=== PATIENT | male | born 2005 | race Caucasian/White ===

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

== ENCOUNTER 2024-01-30 22:57 | Emergency (ER) | payer BC, SELFPAY ==
[2024-01-30 23:03] VITALS: BP 121/73; PULSE 81; RESP 20; TEMP 36.9; O2SAT 99; BMI 18.7
--- NOTE | 2024-01-30 23:30 | ED.GENADULT ---
HPI - General Adult General Chief complaint: Unspecified Complaint, Adult Stated complaint: lightheaded Time Seen by Provider: 01/30/24 23:30 History of Present Illness HPI narrative: CC: Intermittent Lightheadedness pt. was down in [place] for vacation. started having lightheadedness at airport. was seen by MD. diagnosed with anxiety. labs/ekg were negative at that time. denies n/v, diarrhea, fevers. 18-year-old young man presenting to the emergency department with concern of rather significant lightheadedness to the point of syncope. Is not known to have a seizure disorder. Apparently was evaluated recently with extensive workup and thought to have this be related to anxiety. Apparently normal chemistries. EKG as well. Occurring again today. No chest pain or shortness of breath. No seizure-like activity. No history of dysrhythmia or sudden cardiac in the family. Is not complaining of headache. Was dispensed hydroxyzine but is excessively tired with that and so prefers not to take it. No other substances. Related Data Previous Rx's ?Medication ?Instructions ?Recorded propranolol 20 mg tablet 20 mg PO BID-TID PRN For 01/31/24 palpitations, anxiety #30 tabs Allergies Allergy/AdvReac Type Severity Reaction Status Date / Time No Known Drug Allergies Allergy Verified 01/30/24 23:05 Review of Systems Status of ROS: Reports: 6 or more systems reviewed and unremarkable except as noted in History and below [facility] Medical History No significant past medical history Surgical History No significant past surgical history Social History Smoking Status: Never smoker Do you use any of these nicotine containing products: None Second hand tobacco smoke exposure: No How often do you have a drink containing alcohol: never How often do you have six or more drinks on one occasion: Never AUDIT-C Alcohol total score: 0 Non-prescribed substance use: denies use service: No Exam Narrative: Exam Narrative: Pleasant. NAD. Appears just generally sleepy. Cranial nerves 2-12 are intact. Pupils are equal and briskly reactive. Moving all extremities without difficulty. Is well-perfused. Heart with regular rate and rhythm without murmur rub or gallop. Normal PMI. Lungs are clear. Extremities are without edema. Abdomen is soft flat nontender. Skin is warm and dry without any indication of injury. Head is atraumatic. Neck is supple nontender. Const: Vital Signs, click to edit/add: Vital Signs - 24 hr 01/30/24 23:03 01/30/24 23:53 01/31/24 01:14 Temperature 98.5 F 98.5 F Pulse Rate [Right Pulse Oximeter] 81 67 Pulse Rate [orthos tatic lying Left P ulse Oximeter] 60 Pulse Rate [orthos tatic sitting Left Pulse Oximeter] 63 Pulse Rate [orthos tatic standing Lef t Pulse Oximeter] 65 Respiratory Rate 20 20 Blood Pressure [Ri ght Upper Arm] 121/73 118/71 Blood Pressure [or thostatic lying Ri ght Arm] 124/67 Blood Pressure [or thostatic sitting Right Arm] 123/74 Blood Pressure [or thostatic standing Right Arm] 114/76 Pulse Oximetry 99 99 Oxygen Delivery Me thod Room Air Room Air 01/31/24 02:04 Temperature 98.5 F Pulse Rate [Right Pulse Oximeter] 67 Pulse Rate [orthos tatic lying Left P ulse Oximeter] Pulse Rate [orthos tatic sitting Left Pulse Oximeter] Pulse Rate [orthos tatic standing Lef t Pulse Oximeter] Respiratory Rate 20 Blood Pressure [Ri ght Upper Arm] 118/71 Blood Pressure [or thostatic lying Ri ght Arm] Blood Pressure [or thostatic sitting Right Arm] Blood Pressure [or thostatic standing Right Arm] Pulse Oximetry Oxygen Delivery Me thod Documenting provider has reviewed patient's vital signs: yes Course Vital Signs Vital signs: Initial Vital Signs Temperature 98.5 F 01/30/24 23:03 Temperature Source Temporal Artery Scan 01/30/24 23:03 Pulse Rate 81 01/30/24 23:03 Respiratory Rate 20 01/30/24 23:03 Blood Pressure 121/73 01/30/24 23:03 Blood Pressure Mean 89 01/30/24 23:03 Blood Pressure Position Sitting 01/30/24 23:03 Pulse Oximetry 99 01/30/24 23:03 Oxygen Delivery Method Room Air 01/30/24 23:03 Vital Signs Temperature 98.5 F 01/30/24 23:03 Pulse Rate 81 01/30/24 23:03 Respiratory Rate 20 01/30/24 23:03 Blood Pressure 121/73 01/30/24 23:03 Pulse Oximetry 99 01/30/24 23:03 Oxygen Delivery Method Room Air 01/30/24 23:03 Temperature 98.5 F 01/31/24 02:04 Pulse Rate 67 01/31/24 02:04 Respiratory Rate 20 01/31/24 02:04 Blood Pressure 118/71 01/31/24 02:04 Pulse Oximetry 99 01/31/24 01:14 Oxygen Delivery Method Room Air 01/31/24 01:14 Medications Administered Medications: Discontinued Medications Generic Name Dose Route Start Last Admin Trade Name Freq PRN Reason Stop Dose Admin Propranolol HCl 20 mg 01/31/24 01:55 01/31/24 02:04 Propranolol 20 Mg Tablet PO 01/31/24 01:56 20 mg ONCE ONE Administration Medical Decision Making MDM Narrative Medical decision making narrative: Monitor for arrhythmia here in the emergency department as well as further evolution of symptoms. Unclear etiology at this point. Somewhat orthostatic in nature and not clearly tachycardic like pots. Otherwise generally healthy. Reviewing recent records. Doubtful that has had any change in chemistries or hemoglobin which were recently normal. This does not appear to be an ischemic cardiovascular event. Accompanied here by girlfriend. 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 Reviewing records as described this EKG today looks to be similar. Perhaps an endocrine workup further would be warranted. Orthostatics reportedly with some lightheadedness but otherwise is relatively unchanged vitals. Understanding is in the 60s for pulse but perhaps propranolol would be less sedating option. Remaining in the emergency department without further event. Did give a dose of propranolol prior to departure. I think Holter monitor or cardiac monitoring of some sort would be indicated. Might follow-up for EEG? See patient discharge plan for further discussion ECG Data Attestation: I personally reviewed and interpreted this ECG as follows: (Normal sinus. LVH? Similar to EKG described prior. rate of 62) Discharge Plan Discharge Clinical Impression: Malaise Patient Disposition: Home w/ Parent or Adult Condition: Improved Additional Instructions: Continue to stay well-hydrated I am not sure what is causing these episodes. It might be related to anxiety or at least that this contributes. I think it is still worth evaluating heart rhythm over a longer period of time. Please wear this Holter monitor as prescribed. I would follow up for results with your primary care provider in about a week after turning it in. Can try this propranolol instead of the hydroxyzine that is making you excessively sleepy. These symptoms may well require further investigation. Would discuss further in follow-up with your primary care provider as above. Prescriptions: New propranolol 20 mg tablet 20 mg PO BID-TID PRN (Reason: For palpitations, anxiety) Qty: 30 0RF Follow Up/Referrals: Brandon Hood MD [Primary Care Provider] - Stand Alone Forms: [employer] Info Instructions
[2024-01-30 23:53] VITALS: BP 114/76; BP 123/74; BP 124/67; PULSE 60; PULSE 63; PULSE 65
--- NOTE | 2024-01-31 01:05 | XR_ITS ---
Patient: ALE LEES Facility:?[facility] Patient ID:?[id number] Site Patient ID:?[id number]. Site :?[id number] Study:?XRay-Chest PORTABLE-01/31/2024 1:34:33 AM Ordering Physician:RENÉE Final Report: INDICATION: .EVAL FOR CARDIOMEGALY, PNEUMOTHORAX TECHNIQUE: Chest 1 views. COMPARISON: None. FINDINGS: Lungs: Normal lung volume. No consolidation. The tracheobronchial tree and hilar structures are unremarkable. Pleura: No pleural effusion or pneumothorax. Heart and Mediastinum: Normal heart size. The great vessels of the thorax are unremarkable. Bones: No acute displaced osseous process. IMPRESSION: Normal heart size. No pneumothorax. Dictated by Emory Alvarado MD @ 01/31/2024 1:44:46 AM Signed by:?Emory Alvarado MD @01/31/2024 1:44:46 AM (Electronic Signature)
[2024-01-31 01:14] VITALS: BP 118/71; PULSE 67; RESP 20; TEMP 36.9; O2SAT 99
[2024-01-31 02:04] VITALS: BP 118/71; PULSE 67; RESP 20; TEMP 36.9
[2024-01-31] MEDS: PROPRANOLOL 20 MG TABLET PO (02:04)
== END 2024-01-31 03:36 | disposition home or self-care (01) ==
PROVIDERS: Emergency Provider Family Medicine; PCP Family Medicine
DX: R53.81 Other malaise (principal)
CPT/HCPCS: 71045; 93005; 93225; 93226; 99284; A9270